=== PATIENT | female | born 1940 ===

== ENCOUNTER 2018-06-24 10:56 | Inpatient (IN) | payer OTHER ==
[~2018-06-24] VITALS: Ht 160 cm; Wt 120.0 kg
[2018-06-24] MEDS ORDERED: MOXIFLOXACIN H400 MG (13:05)
[2018-06-24] MEDS ORDERED: LOSARTAN POTASS25 MG (13:06)
[2018-06-24] MEDS ORDERED: LIPITOR20 MG (13:06)
[2018-06-27] MEDS ORDERED: CEFDINIR300 MG PO (09:39)
[2018-06-27] MEDS ORDERED: AZITHROMYCIN250 MG PO (09:39)
[2018-06-27] MEDS ORDERED: OMEPRAZOLE40 MG PO (09:40)
== END 2018-06-27 14:36 | disposition home or self-care (01) | DRG 194 ==
LOC: ER 10:56 → SEC-K 20:56 → MEDJ 20:56
PROVIDERS: ADMIT Internal Medicine
PROC: 4A033R1 Measurement of Arterial Saturation, Peripheral, Percutaneous Approach (ICD-10-PCS; 2018-06-24)
PROC: 3E0F7GC Introduction of Other Therapeutic Substance into Respiratory Tract, Via Natural or Artificial Opening (ICD-10-PCS; 2018-06-24)
PROC: BW24ZZZ Computerized Tomography (CT Scan) of Chest and Abdomen (ICD-10-PCS; principal; 2018-06-25)
DX: J18.9 Pneumonia, unspecified organism (principal); J47.1 Bronchiectasis with (acute) exacerbation; E78.49 Other hyperlipidemia; I10 Essential (primary) hypertension